=== PATIENT | male | born 1980 | race Caucasian/White ===

== ENCOUNTER 2022-04-23 13:06 | Emergency (ER) | payer SELFPAY ==
[2022-04-23 13:09] VITALS: BP 144/96; PULSE 92; RESP 18; TEMP 36.6; O2SAT 97; BMI 25.8
[2022-04-23] MEDS: sodium chloride 0.9% 1,000 ML 999 ML IV (13:34)
[2022-04-23] MEDS: ondansetron 2 mg/ML SDV 2 mL 4 MG IVP (13:34)
--- NOTE | 2022-04-23 13:37 | W.ED.ABDPA2 ---
HPI - Abdominal Pain General: Chief Complaint: Abdominal Pain Stated Complaint: ABD PAIN Time Seen by Provider: 04/23/22 13:13 Source: patient Mode of arrival: other (Custody of law enforcement) History of Present Illness: 41-year-old male who presents emergency room in the custody of law enforcement. He is currently incarcerated. He is complaining about 7 days of nausea and vomiting with some dark tarry stools. States he chronically has blood in his stool from a hemorrhoid but it has become worse lately. He has some lower abdominal cramping and discomfort and has had watery stools. Beyond the typical bleeding he gets after a bowel movement from his hemorrhoids he has not noticed any increase in bleeding. No fever sweats or chills. No previous abdominal surgeries. Denies dysuria urgency or frequency. No hematemesis. States his symptoms are improved today MD elicited complaint: abdominal pain Pertinent past history: other (Hemorrhoids) Onset (ago): week(s) (1) Pain Consistency: intermittent Location: LLQ Severity: mild Quality: cramping Radiation: none Migration to: no migration Exacerbating factors: nothing Relieving factors: nothing Associated Symptoms: Reports change in stool character, GI cramping, diarrhea, excessive flatus, fever(s), fecal incontinence, loose stools, nausea, poor appetite and vomiting; Denies anorexia, belching, bloating, change in bowel habits, chills, coffee ground emesis, constipation, dyspepsia, dysuria, heartburn, hematochezia, hematuria, hematemesis, melena and syncope Review of Systems Const: Reports: fever(s); Denies: chills ENMT: Denies: throat pain, ear or mastoid pain, nasal discharge or nasal congestion Card: Denies: chest pain, palpitations, irregular heart rhythm or syncope Resp: Denies: dyspnea, productive cough or non-productive cough GI: Reports: abdominal pain, nausea, vomiting, diarrhea, GI cramping, excessive flatus, fecal incontinence and change in stool character; Denies: hematemesis, coffee ground emesis, heartburn, constipation, bloating, belching, change in bowel habits, hematochezia or melena : Denies: flank pain, difficulty urinating, dysuria, urinary frequency, urinary urgency or hematuria Musc: Denies: neck pain or back pain Skin/Breast: Denies: rash or pruritus PFSH ED PFSH: Medical History (Updated 04/23/22 @ 14:20 by Vivek Rowe DO) No significant past medical history Surgical History (Updated 04/23/22 @ 13:41 by Vivek Rowe DO) No pertinent past surgical history Social History (Updated 04/23/22 @ 13:41 by Vivek Rowe DO) Smoking and tobacco status: former smoker Alcohol intake: former Former alcohol use details: Currently incarcerated unable to drink Physical Exam Const: GENERAL APPEARANCE: cooperative and comfortable ORIENTATION/CONSCIOUSNESS: Yes awake, Yes oriented to person, Yes oriented to place and Yes oriented to time HENMT: COMMON NORMALS: normocephalic, atraumatic and hearing grossly normal bilaterally HEAD & SCALP: normocephalic and atraumatic Resp: COMMON NORMALS: normal respiratory effort, No retractions, No use of accessory muscles and clear to auscultation bilaterally AUSCULTATION: clear to auscultation bilaterally Cardio: COMMON NORMALS: regular rate, regular rhythm and No murmurs present (Cardio) RATE: regular rate RHYTHM: regular rhythm GI: COMMON NORMALS: Soft to palpation and No hepatosplenomegaly present AUSCULTATION: Yes normoactive bowel sounds PALPATION: Yes Soft to palpation, No Tenderness to palpation present (GI), No Guarding due to palpation present (GI) and Yes No hepatosplenomegaly present Extremity: COMMON NORMALS: normal to inspection, capillary refill normal, no clubbing, cyanosis or edema, no calf tenderness and no pedal edema Neuro: SENSORIUM/ORIENTATION: Yes oriented to person, Yes oriented to place and Yes oriented to time Skin: COMMON NORMALS: no rashes or lesions noted GENERAL SKIN EXAM: no rashes or lesions noted Course Vital Signs: Vital signs: Vital Signs Temperature 98 F 04/23/22 13:09 Pulse Rate 78 04/23/22 14:23 Respiratory Rate 18 04/23/22 14:23 Blood Pressure 132/92 04/23/22 14:23 Pulse Oximetry 97 04/23/22 14:23 Oxygen Delivery Me thod 04/23/22 13:09 MDM - Abdominal Pain Medical Decision Making Labs reviewed. Patient's exam is relatively unremarkable at this point. White count is normal. Suspect he may have some diverticulitis we will start him on Cipro and Flagyl. Clear liquid diet x2 days. Advance as tolerated after that follow-up with his primary care doctor at some point to reevaluate may need to have a colonoscopy done. Medical Records I reviewed the patient's medical records. Lab Data I reviewed the patient's lab results. : 04/23/22 13:30 04/23/22 13:30 Labs/Radiology: Laboratory Results WBC 6.8 10^3/uL (4.0-10.0) 04/23/22 13:30 RBC 4.34 10^6/uL (4.1-5.3) 04/23/22 13:30 Hgb 13.9 g/dL (11.7-16.6) 04/23/22 13:30 Hct 39.2 % (42.0-52.0) L 04/23/22 13:30 MCV 90.3 fl (80-94) 04/23/22 13:30 MCH 32.0 pg (28.0-34.0) 04/23/22 13:30 MCHC 35.5 g/dL (30.0-36.0) 04/23/22 13:30 RDW 12.1 % (12.1-15.1) 04/23/22 13:30 Plt Count 301 10^3/cmm (130-400) 04/23/22 13:30 MPV 9.4 fL (7.4-10.4) 04/23/22 13:30 Neut % (Auto) 48.2 % 04/23/22 13:30 Lymph % (Auto) 38.5 % 04/23/22 13:30 [place] % (Auto) 9.7 % 04/23/22 13:30 Eos % (Auto) 2.3 % 04/23/22 13:30 Baso % (Auto) 0.9 % 04/23/22 13:30 Neut # (Auto) 3.28 10^3/uL (1.8-7.7) 04/23/22 13:30 Lymph # (Auto) 2.6 10^3/uL (0.8-4.8) 04/23/22 13:30 [place] # (Auto) 0.7 10^3/uL (0.2-0.9) 04/23/22 13:30 Eos # (Auto) 0.2 10^3/uL (0.0-0.8) 04/23/22 13:30 Baso # (Auto) 0.1 10^3/uL (0.0-0.1) 04/23/22 13:30 Nucleated RBC % (auto) 0 % 04/23/22 13:30 Nucleated RBCs # 0.0 /100WBC 04/23/22 13:30 Sodium 133 mmol/L (136-145) L 04/23/22 13:30 Potassium 4.0 mmol/L (3.5-5.1) 04/23/22 13:30 Chloride 98 mmol/L (98-107) 04/23/22 13:30 Carbon Dioxide 27 mmol/L (22-29) 04/23/22 13:30 Anion Gap 12.0 (5-19) 04/23/22 13:30 BUN 12 mg/dL (6-20) 04/23/22 13:30 Creatinine 0.6 mg/dL (0.7-1.2) L 04/23/22 13:30 GFR Calculation 147.0 mL/min (90-130) H 04/23/22 13:30 Glucose 98 mg/dL (65-115) 04/23/22 13:30 Calculated Osmolality 276 mOsm/kg (285-295) L 04/23/22 13:30 Calcium 9.3 mg/dL (8.5-10.5) 04/23/22 13:30 Total Bilirubin 0.6 mg/dL (0.15-1.2) 04/23/22 13:30 AST 21 U/L (0-40) 04/23/22 13:30 ALT 33 U/L (0-41) 04/23/22 13:30 Alkaline Phosphatase 89 U/L (40-130) 04/23/22 13:30 Total Protein 7.2 g/dL (6.6-8.7) 04/23/22 13:30 Albumin 4.2 g/dL (3.5-5.2) 04/23/22 13:30 Globulin 3.0 g/dL (1.3-4.6) 04/23/22 13:30 Lipase 25 U/L (13-60) 04/23/22 13:30 Discharge Plan Discharge Patient Disposition: Home Clinical Impression: Diverticulitis Prescriptions: New Cipro 500 mg tablet 500 mg PO BID Qty: 14 0RF metronidazole 500 mg tablet 500 mg PO BID 7 Days Qty: 14 0RF Discharge Orders: Discharge ED (Routine); Ordered 04/23/22 Ordered By: Vivek Rowe Referrals: Aleyda Pepe, [facility] [Primary Care Provider] - Discharge Diet: Clear Liquid Discharge Activity: Resume usual activity and Increase activity as tolerated Patient Instructions: Opioid Safety, Pain Management Activity Restrictions/Additional Instructions: Clear liquid diet for 24 to 48 hours and advance as tolerated. Coding Level of Care Code ED Building Mover for Chg Fwd Exam Detailed
[2022-04-23 13:41] LABS: Basophils # 0.1 10^3/uL (0.0-0.1); Basophils % 0.9 %; Eosinophils # 0.2 10^3/uL (0.0-0.8); Eosinophils % 2.3 %; Hematocrit 39.2 % (42.0-52.0); Hemoglobin 13.9 g/dL (11.7-16.6); Lymphocytes # 2.6 10^3/uL (0.8-4.8); Lymphocytes % 38.5 %; Mean Corpuscular HGB Conc 35.5 g/dL (30.0-36.0); Mean Corpuscular Volume 90.3 fl (80-94); Mean Platelet Volume 9.4 fL (7.4-10.4); Monocytes # 0.7 10^3/uL (0.2-0.9); Monocytes % 9.7 %; Neutrophils # 3.28 10^3/uL (1.8-7.7); Neutrophils % 48.2 %; Nucleated Red Blood Cells % 0 %; Platelet Count 301 10^3/cmm (130-400); Red Blood Count 4.34 10^6/uL (4.1-5.3); Red Cell Distribution Width 12.1 % (12.1-15.1); White Blood Count 6.8 10^3/uL (4.0-10.0)
[2022-04-23 14:02] LABS: Alanine Aminotransferase 33 U/L (0-41); Albumin Level 4.2 g/dL (3.5-5.2); Alkaline Phosphatase 89 U/L (40-130); Aspartate Amino Transferase 21 U/L (0-40); Blood Urea Nitrogen 12 mg/dL (6-20); Calcium 9.3 mg/dL (8.5-10.5); Carbon Dioxide 27 mmol/L (22-29); Chloride 98 mmol/L (98-107); Glucose 98 mg/dL (65-115); Lipase 25 U/L (13-60); Osmolality Calculated 276 mOsm/kg (285-295); Sodium 133 mmol/L (136-145); Total Bilirubin 0.6 mg/dL (0.15-1.2); Total Protein 7.2 g/dL (6.6-8.7)
[2022-04-23 14:07] LABS: Slide Review Slide Review Perform
[2022-04-23 14:23] VITALS: BP 132/92; PULSE 78; RESP 18; O2SAT 97
== END 2022-04-23 14:32 | disposition home or self-care (01) ==
PROVIDERS: Emergency Provider Family Medicine; PCP Nurse Practitioner
DX: K57.92 Diverticulitis of intestine, part unspecified, without perforation or abscess without bleeding (principal)
CPT/HCPCS: 80053; 83690; 85025; 96361; 96374; 99284; J2405; J7030

== ENCOUNTER 2022-06-24 22:38 | Emergency (ER) | payer MEDICAID, SELFPAY ==
[2022-06-24 22:42] VITALS: BP 127/89; PULSE 108; RESP 12; TEMP 37.7; O2SAT 96; BMI 24.7
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
[2022-06-24 23:03] LABS: Basophils % 0.2 %; Hematocrit 38.6 % (42.0-52.0); Hemoglobin 13.4 g/dL (11.7-16.6); Lymphocytes # 1.4 10^3/uL (0.8-4.8); Mean Corpuscular HGB Conc 34.7 g/dL (30.0-36.0); Mean Corpuscular Hemoglobin 32.1 pg (28.0-34.0); Mean Corpuscular Volume 92.6 fl (80-94); Mean Platelet Volume 9.3 fL (7.4-10.4); Monocytes # 1.5 10^3/uL (0.2-0.9); Monocytes % 9.7 %; Neutrophils # 12.64 10^3/uL (1.8-7.7); Neutrophils % 80.8 %; Nucleated Red Blood Cells % 0 %; Platelet Count 347 10^3/cmm (130-400); Red Blood Count 4.17 10^6/uL (4.1-5.3); Red Cell Distribution Width 12.8 % (12.1-15.1); White Blood Count 15.6 10^3/uL (4.0-10.0)
[2022-06-24 23:18] LABS: INR 1.07 (0.8-1.2)
[2022-06-24 23:23] LABS: Alanine Aminotransferase 29 U/L (0-41); Albumin Level 4.4 g/dL (3.5-5.2); Alkaline Phosphatase 76 U/L (40-130); Anion Gap 15.2 (5-19); Aspartate Amino Transferase 58 U/L (0-40); Blood Urea Nitrogen 19 mg/dL (6-20); Calcium 9.3 mg/dL (8.5-10.5); Carbon Dioxide 24 mmol/L (22-29); Chloride 104 mmol/L (98-107); Globulin 2.5 g/dL (1.3-4.6); Glucose 112 mg/dL (65-115); Osmolality Calculated 291 mOsm/kg (285-295); Potassium 4.2 mmol/L (3.5-5.1); Sodium 139 mmol/L (136-145); Total Bilirubin 1.3 mg/dL (0.15-1.2); Total Protein 6.9 g/dL (6.6-8.7)
[2022-06-24 23:30] LABS: Alcohol Level < 10 mg/dL (0-10)
[2022-06-24 23:49] VITALS: BP 104/70; PULSE 100; RESP 14; O2SAT 95
[2022-06-25 00:10] LABS: Add Urine Microscopic? YES; Amphetamines Screen Urine Negative (Negative); Barbiturates Screen Urine Negative (Negative); Benzodiazepines Screen Urine Negative (Negative); Bilirubin Urine Neg (Negative); Blood Urine 2+ (Negative); Cocaine Screen Urine Negative (Negative); Glucose Urine UA Norm (Normal); Ketones Urine 1+ (Negative); Leukocyte Esterase Urine Negative (Negative); Nitrate Urine Negative (Negative); Opiate Screen Urine Negative (Negative); PCP Screen Urine Negative (Negative); Protein Urine Neg (Negative); RBC Urine RARE /hpf (0-2); THC Screen Urine Negative (Negative); Urine Appearance Clear (CLEAR); Urine Color Yellow (Yellow); Urobilinogen Urine Norm (Negative); pH Urine 5 (5-7)
[2022-06-25 00:30] VITALS: BP 129/76; PULSE 103; RESP 14; O2SAT 94
[2022-06-25 01:24] VITALS: RESP 14
[2022-06-25] MEDS: levoFLOXacin 500 mg Tablet PO (01:24)
[2022-06-25] MEDS: oxyCODONE-APAP 5-325 mg Tablet 1 TAB PO (01:24)
[2022-06-25 01:30] VITALS: BP 110/66; PULSE 96; RESP 14; O2SAT 92
[2022-06-25 01:39] VITALS: BP 110/66; PULSE 96; RESP 14; O2SAT 92
--- NOTE | 2022-06-30 10:34 | DCPLANNER ---
employment evaluator/case manager had message to schedule a follow up appointment for patient with a oral maxillary surgeon. employment evaluator/case manager had a physician speak to physician datapower consultant with the transfer line for oral maxillary facial surgery. Dr. Amadeo Ventura accepted patient, he is with [facility] in [place]. Office phone number is [phone], employment evaluator/case manager called and spoke with Dr. Ventura nurse, gave clinic patients information. Clinic will call patient with appointment information.
== END 2022-06-25 01:40 | disposition home or self-care (01) ==
PROVIDERS: Emergency Provider Emergency Medicine; PCP Nurse Practitioner
DX: S06.0X9A Concussion with loss of consciousness of unspecified duration, initial encounter (principal); S01.112A Laceration without foreign body of left eyelid and periocular area, initial encounter; S01.111A Laceration without foreign body of right eyelid and periocular area, initial encounter; S01.01XA Laceration without foreign body of scalp, initial encounter; S02.2XXA Fracture of nasal bones, initial encounter for closed fracture; S02.40CA Maxillary fracture, right side, initial encounter for closed fracture; S02.40EA Zygomatic fracture, right side, initial encounter for closed fracture; S02.31XA Fracture of orbital floor, right side, initial encounter for closed fracture; Y09 Assault by unspecified means; S01.511A Laceration without foreign body of lip, initial encounter; Z87.891 Personal history of nicotine dependence
CPT/HCPCS: 70450; 70486; 71250; 72125; 74176; 80053; 80306; 80307; 81001; 81003; 85025; 85610; 99285